=== PATIENT | female | born 1975 | race Caucasian/White ===

== ENCOUNTER 2016-04-28 00:41 | Emergency (ER) | payer BC ==
[2016-04-28 01:27] VITALS: RESP 20; TEMP 98.4
[2016-04-28 01:30] LABS: BASOPHILS # (AUTO) 0.04 10*3/UL; BASOPHILS % (AUTO) 0.5 % (0-1); EOSINOPHILS % (AUTO) 3.3 % (0-8); HEMATOCRIT 37.8 % (37.0-47.0); HEMOGLOBIN 12.8 g/dL (12.0-16.0); IMM GRAN % (AUTO) 0.3 % (0-5); IMM GRAN# (AUTO) 0.02 10*3/UL; LYMPHOCYTES % (AUTO) 32.8 % (10-50); MEAN CORPUSCULAR HEMOGLOBIN 30.5 PG (27-31); MEAN CORPUSCULAR HGB CONC 33.9 g/dL (33-37); MEAN PLATELET VOLUME 10.2 FL (7.4-12.2); MONOCYTES # (AUTO) 0.56 10*3/UL (0.3-0.8); MONOCYTES % (AUTO) 7.1 % (5-15); NEUTROPHILS # (AUTO) 4.44 10*3/UL; PLATELET MORPHOLOGY COMMENT NORMAL MORPHOLOGY (NORM); RDW COEFFICIENT OF VARIATION 12.5 % (11.5-14.5); RED BLOOD COUNT 4.19 10^6/uL (4.20-5.40); WHITE BLOOD COUNT 7.92 10^3/uL (4.8-10.8)
[2016-04-28 01:40] LABS: ASPARTATE AMINO TRANSFERASE 23 IU/L (8-39); BILIRUBIN,TOTAL 0.3 mg/dL (0.3-1.2); BLOOD UREA NITROGEN 11 mg/dL (7-22); BUN/CREATININE RATIO 18.33 (6-20); CALCIUM 8.9 mg/dL (8.7-10.7); CHLORIDE 107 meq/L (98-112); CREATININE 0.6 mg/dL (0.50-1.20); EST GLOMERULAR FILTRATION > 60 (>60 ml/min/1.73m(2)); GLUCOSE 97 mg/dL (78-110); POTASSIUM 3.7 meq/L (3.8-5.2); SODIUM 142 meq/L (135-145)
--- NOTE | 2016-04-28 05:15 | PDOC ---
General Adult HPI - General Chief Complaint: General Medical Stated Complaint: MUSCLE SPASMS Date Seen by Provider: 04/28/16 Time Seen by Provider: 01:00 Source: POSITIVE: Patient, EMS Exam Limitations: POSITIVE: No limitations Nurse's Notes Reviewed & Considered: Yes EMS Report Reviewed & Considered: Verbal - History of Present Illness Initial Comment: The patient is a 41-year-old female. She is brought to the emergency room by ambulance. Patient complains of "muscle spasms"in the paracervical musculature. Patient has a long-standing history of neck pain and received a chiropractic treatment for her chronic neck pain today. She states she has had neck pain for the past 5 years. History of hypertension. Patient states that this evening she was resting and developed "muscle spasms"paracervical musculature. She was drinking alcohol heavily tonight. Her called the ambulance and paramedics administered a total of 3 mg of Ativan in the field. Patient was very anxious upon their arrival. Patient feels considerably better upon arrival to the emergency room. No recent trauma. No paresthesia or sensory symptoms. No motor symptoms. Have you received a tetanus shot in the past 10 years?: Yes Body Location Affected: REPORTS: Neck Timing: REPORTS: Abrupt Duration: 1-3 hours Severity: Moderate Quality: REPORTS: "Pain" Context: REPORTS: Emotional stress Modifying Factors: improves with: Movement (Pain is exacerbated by movement of neck), Other (Pain is exacerbated by direct palpation of the paracervical musculature). worse with: Nothing, Analgesics, Antacids, Breathing, Coughing, Defecating, Vomiting, Eating, Exercise, Lying down, Urinating, Palpation, Rest, Upright Position, Walking, Remaining Still Similar Symptoms Previously: Yes Recent Care Received: REPORTS: Recently Seen, Treated by (Treated by chiropractor today) - Patient Home Medications Home Medications: Home Medications Albuterol Sulfate [Proair Hfa] 2 puff INH QID #3 inhaler 06/18/14 Ibuprofen 1 tab PO TID PRN #60 tab 06/18/14 Epinephrine [Epipen] 0.3 mg IM ONCE PRN ml 06/17/15 Loratadine/Pseudoephedrine Sul [Claritin-D 24 Hour Tablet] 1 tab PO DAILY tab 06/17/15 Fluticasone Propionate [Flonase Allergy Relief] 2 spr MARLA DAILY #3 bau Hydrochlorothiazide 25 mg PO QAM #90 tab 07/29/15 Ramipril [Altace] 10 mg ORAL QD #90 capsule 07/29/15 Simvastatin 20 mg ORAL QHS #90 tab 07/29/15 - Patient Allergies Allergies/Adverse Reactions: Allergies Allergy/AdvReac Type Severity Reaction Status Date / Time venom-honey bee Allergy Severe Anaphylaxis Verified 04/28/16 01:04 [bee venom (honey bee)] venom-wasp [wasp venom] Allergy Severe Anaphylaxis Verified 04/28/16 01:04 Past Medical History - heen HEENT History: Denies History Cardiovascular History: Hypertension, Hyperlipidemia Respiratory History: Asthma Gastrointestinal History: Denies History Genitourinary History: Denies History Endocrine History: Denies History Musculoskeletal History: Back Pain, Other (please comment) Prosthesis or Implant: No Additional Musculoskeletal History: chronic neck pain. pt reports was in a work accident 5 years ago and injured her neck, now has neck spasms and pain. 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 Hysterectomy Anesthesia Reactions: No Significant Family History: No pertinent family hx Past Medical History Reviewed: Reviewed - No Changes ROS - Limitations ROS Limitations: No Limitations Constitution: REPORTS: Denies Symptoms Cardiovascular: REPORTS: Denies Cardiac Symptoms Respiratory: REPORTS: Denies Resp Symptoms Neurological: REPORTS: Denies Neuro Symptoms Gastrointestinal: REPORTS: Denies GI Symptoms Endocrine: REPORTS: Denies Symptoms Musculoskeletal: REPORTS: Neck Pain Genitourinary: REPORTS: Denies Symptoms Eyes: REPORTS: Denies Symptoms ENT: REPORTS: Denies Symptoms Skin: REPORTS: Denies Skin Symptoms Lympathic: REPORTS: Denies Lympathic Symptoms Immunologic: POSITIVE: Denies Symptoms Psychiatric: POSITIVE: Anxiety General Adult Exam - General Appearance General Appearance: POSITIVE: Alert, Cooperative, No Acute Distress, No Evidence of Trauma, Anxious - HEENT HEENT: POSITIVE: Head Inspection Nml, Eyes Inspection Nml, Ears Inspection Nml, Nose Inspection Nml, Oral/Dental Inspect. Nml, Pharynx Inspect. Nml, PERRL, EOMI - Pupils Pupil Size: 4 mm: Bilateral (PERRLA) - Neck Neck: POSITIVE: Other (Some spasm and pain on palpation paracervical musculature. Spinous processes palpably normal and nontender.). NEGATIVE: Thyroid Normal, Thyromegaly, Lymphadenopathy, Stiff Neck, Kernig's, Brudzinski' s Sign, Carotid Bruit - Respiratory Respiratory: POSITIVE: No Respiratory Distress, Breath Sounds Normal, Chest Non- Tender - Cardiovascular Cardiovascular: POSITIVE: Regular Rate & Rhythm, No Murmur, No Gallop, PMI Normal Peripheral Pulses: Radial (R): 2+, Radial (L): 2+ - Abdomen Abdomen: Soft: (All Quadrants), Normal Bowel Sounds: (All Quadrants), Denies Tenderness: (All Quadrants), No Splenomegaly: (All Quadrants), No Hepatomegaly: (All Quadrants), No Guarding: (All Quadrants), No Rebound: (All Quadrants), No Palpable Pulse: (All Quadrants), No Palpabale Mass: (All Quadrants), No Distention: (All Quadrants), No Rigidity: (All Quadrants) - Back Back: POSITIVE: Normal Inspection - Skin Skin: POSITIVE: Normal Color, Warm, Dry, No Rash - Extremities Extremity: Non-Tender: (All Extremities), Normal ROM: (All Extremities), Normal Inspection: (All Extremities) - Neurological / Psychological Neurological: POSITIVE: Oriented X3, account information clerk Normal As Tested, Motor Normal, Sensation Normal, 5, 6 Reflexes: Patellar (R): 2+, Patellar (L): 2+ Images - Head Head: 1 - Tender on palpation 2 - Tender on palpation General Adult Progress - Results Reviewed by me Xrays/CTs/US Reviewed by me: Yes Discussed with Radiologist: No Radiology Findings: Some degenerative changes by my interpretation; radiologist interpretation pending. Lab Results Reviewed: Yes (blood alcohol 187) Lab Results:: Laboratory Results 04/28/16 Range/Units 01:20 WBC 7.92 (4.8-10.8) 10^3/uL RBC 4.19 L (4.20-5.40) 10^6/uL Hgb 12.8 (12.0-16.0) g/dL Hct 37.8 (37.0-47.0) % MCV 90.2 (81-99) FL MCH 30.5 (27-31) PG MCHC 33.9 (33-37) g/dL RDW Std Deviation 40.4 (39-50) fL RDW Coeff of Parviz 12.5 (11.5-14.5) % Plt Count 219 (140-350) 10*3/uL MPV 10.2 (7.4-12.2) FL Immature Gran % (Auto) 0.3 (0-5) % Neut % (Auto) 56.0 (50-80) % Lymph % (Auto) 32.8 (10-50) % [place] % (Auto) 7.1 (5-15) % Eos % (Auto) 3.3 (0-8) % Baso % (Auto) 0.5 (0-1) % Immature Gran # (Auto) 0.02 10*3/UL Neut # (Auto) 4.44 10*3/UL Lymph # (Auto) 2.60 10*3/uL [place] # (Auto) 0.56 (0.3-0.8) 10*3/UL Eos # (Auto) 0.26 10*3/UL Baso # (Auto) 0.04 10*3/UL WBC Morphology Comment Normal morphology (NORM) Plt Morphology Comment Normal morphology (NORM) RBC Morph Comment Normal morphology (NORM) Sodium 142 (135-145) meq/L Potassium 3.7 L (3.8-5.2) meq/L Chloride 107 (98-112) meq/L Carbon Dioxide 21 L (23-33) meq/L Anion Gap 14 (5-20) BUN 11 (7-22) mg/dL Creatinine 0.6 (0.50-1.20) mg/dL Estimated GFR > 60 (>60 ml/min/1.73m(2)) BUN/Creatinine Ratio 18.33 (6-20) Glucose 97 (78-110) mg/dL Calculated Osmolality 292.0 (267-292) mOsm/kg Calcium 8.9 (8.7-10.7) mg/dL Total Bilirubin 0.3 (0.3-1.2) mg/dL AST 23 (8-39) IU/L ALT 31 (9-52) IU/L Alkaline Phosphatase 47 (38-126) IU/L Total Protein 7.0 (6.1-8.0) g/dL Albumin 4.2 (3.5-4.8) g/dL Globulin 2.8 (2.50-4.10) g/dL Albumin/Globulin Ratio 1.50 (1.3-2.0) mg/g Serum Alcohol 187 H (0-10) mg/dL - Patient's Progress Pain Medication Addressed: POSITIVE: Yes (Recommended Advil or Tylenol) School/Work Release Addressed: POSITIVE: Not Applicable Re-Examine Time: 02:25 Re-Examine Comment: Minimal discomfort on discharge. Range of motion normal. Status: POSITIVE: Improved, Re-Examined Antibiotics Given: No - Consult Counseled: POSITIVE: Patient, Family, RE: Lab Results, RE: Radiology Results, RE : DX, RE: Need for F/U Patient Care Time - Estimated PCT Patient Care Time (In Minutes): 30 Vital Signs - Recent Vital Signs Vital Signs: Vital Signs (Last 8 hours) Temp Pulse Resp BP Pulse Ox 04/28/16 00:45 98.4 F 95 20 149/104 96 - VS Reviewed Vital Signs Reviewed: Yes Discharge Clinical Impression: Cervical strain Discharge Disposition: Discharged to Home Condition: Good Patient Instructions Given at Discharge: Cervical Strain (ED) Additional Instructions: Warm moist compresses to neck area. Advil or Tylenol for discomfort. Follow- up with your primary care provider. Return here anytime as necessary. Follow Up With: JERI AGEE FNP [Primary Care Provider] - (Instructions as above. Follow- up with your primary care provider. Return as necessary.)
--- NOTE | 2016-04-28 09:02 | DI ---
XR C-SPINE 2-3 VW,04/28/2016 1:15 AM: Clinical History: Neck pain. Previous Exam: June 20, 2010 Findings: 3 views of the cervical spine are obtained, and demonstrate mild stable reversal of the normal lordot ic curvature of the cervical spine. There is loss of intervertebral disc height at the C5/6 and C6/7 levels with endplate osteophyte form ation. The prevertebral soft tissues are unremarkable. There is some facet arthropathy noted as well. Impression: Diffuse degenerative changes of the cervical spine which have worsened since 2010.
== END 2016-04-28 02:45 | disposition home or self-care (01) ==
LOC: ER 00:41
DX: S16.1XXA Strain of muscle, fascia and tendon at neck level, initial encounter (principal); M62.838 Other muscle spasm; M50.322 Other cervical disc degeneration at C5-C6 level; M50.323 Other cervical disc degeneration at C6-C7 level
CPT/HCPCS: 72040; 80053; 80320; 85025; 99283

== ENCOUNTER → 2016-05-05 | Outpatient (CLI) | payer BC ==
--- NOTE | 2016-05-05 22:58 | DI ---
MRI CERVICAL SPINE SCAN, 05/05/2016 12:51 PM: Clinical History: Neck pain. Bilateral hand paresthesias. Previous Exam: 06/25/2010. Sequences: Sagittal T1and T2 weighted. Axial T2 PLUS and FE 3D DUAL. Coronal T1 scans through the upp er cervical spine. The vertebral bodies are of normal height and size. There is disc space narrowing at C5-6 and C6-7 an d all cervical disc spaces show desiccation change. The cervical cord and cerebellar tonsils are norm al. C2-3 and C3-4 disc spaces are normal. C4-5 has a very mild central bulging but not herniated disc without canal or neural foraminal stenosis. There is a right anterolateral focal disc herniation at C5-6 and this is displacing the right side of the cord posteriorly and producing spinal canal stenosi s in the AP diameter. There is no neural foraminal stenosis. C6-7 has a bulging but not herniated dis c without canal or neural foraminal stenosis. The disc spaces from C7-T1 through T4-5 are normal. Readin. There is a focal right anterolateral C5-6 disc herniation that is causing spinal canal stenosis i n the AP diameter but there is no neural foraminal stenosis. 2. C4-5 and C6-7 have bulging but not herniated discs without canal or neural foraminal stenosis. 3. The C2-3, C3-4, and C7-T1 through T4-5 disc spaces are normal.
== END ==
LOC: MRI 12:48
PROVIDERS: ATTEND Chiropractor
DX: R20.2 Paresthesia of skin (principal); M54.2 Cervicalgia; M50.122 Cervical disc disorder at C5-C6 level with radiculopathy; M47.812 Spondylosis without myelopathy or radiculopathy, cervical region
CPT/HCPCS: 72141

== ENCOUNTER → 2016-05-06 | Outpatient (CLI) | payer BC, OTHER ==
--- NOTE | 2016-05-06 21:09 | DI ---
MRI BRAIN SCAN WITHOUT CONTRAST, 05/06/2016 12:46 PM: Clinical History: Visual disturbance. Previous Exam: None at this facility. Sequences: Sagittal T1; Axial TROY T2 and FLAIR. Axial diffusion weighted images with ADC mapping were also performed. The 4th, 3rd, and lateral ventricles are of normal size, shape, position, and contour for this patien t's age. There are no focal areas of abnormally increased or decreased signal intensity. No abnormali ty is noted in the visual pathway from the occipital lobes to the optic chiasm and from the chiasm to the orbits. Diffusion weighted imaging with ADC mapping is normal. There are no extracerebral mantel s or shift of the midline structures. The paranasal sinuses are normal. Readin. Normal noncontrast MRI brain scan. No abnormality is noted in the visual pathway between the occi pital lobes and the orbits. 2. Diffusion weighted imaging with ADC mapping is normal.
== END ==
LOC: MRI 12:41
PROVIDERS: ATTEND Chiropractor
DX: H53.8 Other visual disturbances (principal)
CPT/HCPCS: 70551

== ENCOUNTER → 2016-08-27 | Outpatient (CLI) | payer BC ==
[2016-08-27 10:05] LABS: BASOPHILS # (AUTO) 0.04 10*3/UL; BASOPHILS % (AUTO) 0.7 % (0-1); EOSINOPHILS # (AUTO) 0.28 10*3/UL; EOSINOPHILS % (AUTO) 5.1 % (0-8); HEMATOCRIT 39.5 % (37.0-47.0); HEMOGLOBIN 13.3 g/dL (12.0-16.0); LYMPHOCYTES # (AUTO) 1.51 10*3/uL; MEAN CORPUSCULAR HEMOGLOBIN 29.8 PG (27-31); MEAN CORPUSCULAR HGB CONC 33.7 g/dL (33-37); MEAN CORPUSCULAR VOLUME 88.6 FL (81-99); MEAN PLATELET VOLUME 9.7 FL (7.4-12.2); MONOCYTES # (AUTO) 0.42 10*3/UL (0.3-0.8); MONOCYTES % (AUTO) 7.7 % (5-15); NEUTROPHILS % (AUTO) 58.8 % (50-80); RED BLOOD COUNT 4.46 10^6/uL (4.20-5.40)
[2016-08-27 10:11] LABS: PLATELET MORPHOLOGY COMMENT NORMAL MORPHOLOGY (NORM); RBC MORPHOLOGY COMMENT NORMAL MORPHOLOGY (NORM); WBC MORPHOLOGY COMMENT NORMAL MORPHOLOGY (NORM)
[2016-08-27 11:53] LABS: BLOOD UREA NITROGEN 11 mg/dL (7-22); BUN/CREATININE RATIO 15.71 (6-20); CALCIUM 8.6 mg/dL (8.7-10.7); EST GLOMERULAR FILTRATION > 60 (>60 ml/min/1.73m(2)); HDL CHOLESTEROL 52 mg/dL (40-150); SERUM CHOLESTEROL 208 mg/dL (120-200)
== END ==
LOC: LAB 09:45
PROVIDERS: ATTEND Nurse Practitioner Family
DX: Z00.00 Encounter for general adult medical examination without abnormal findings (principal); E87.6 Hypokalemia; I10 Essential (primary) hypertension; F17.200 Nicotine dependence, unspecified, uncomplicated
CPT/HCPCS: 36415; 80053; 80061; 84443; 85025